=== PATIENT | male | born 1975 | race Caucasian/White ===

== ENCOUNTER → 2021-01-09 | Day surgery (SDC) | payer OTHER ==
[~2021-01-09] MED LIST: IMITREX25 MG PO; SUMATRIPTAN PO; VITAMIN C500 M4 PO; VITAMIN D3 PO; ZINC PO
== END | disposition home or self-care (01) ==
LOC: OR 07:21
DX: K40.90 Unilateral inguinal hernia, without obstruction or gangrene, not specified as recurrent (principal); G43.909 Migraine, unspecified, not intractable, without status migrainosus; Z87.891 Personal history of nicotine dependence; Z79.899 Other long term (current) drug therapy
CPT/HCPCS: C1781; J0690; J1100; J1170; J2001; J2250; J2405; J2704; J2710; J3010; J7120